=== PATIENT | female | born 1980 | race American Indian/Alaskan Native ===

== ENCOUNTER 2017-06-05 19:02 | Inpatient (IN) | payer MEDICAID ==
[2017-06-05] MEDS ORDERED: LACTATED RINGERS 1,000 ML IV SCH (23:45)
[2017-06-05] MEDS ORDERED: STADOL IV PRN (23:58)
[2017-06-06 00:49] LABS: Hematocrit 37.6 % (30.3-42.9); Hemoglobin 12.4 gm/dl (10.1-14.3); Mean Corpuscular HGB Conc 33 % (30-34); Mean Corpuscular Hemoglobin 28 pg (28-32); Mean Corpuscular Volume 85 fl (79-97); Red Blood Count 4.42 M/mm3 (3.65-5.03); Red Cell Distribution Width 16.3 % (13.2-15.2); White Blood Count 10.2 K/mm3 (4.5-11.0)
[2017-06-06 01:04] LABS: Platelet Count 97 K/mm3 (140-440)
[2017-06-06] MEDS ORDERED: SUBLIMAZE ONE (01:15)
[2017-06-06] MEDS ORDERED: XYLOCAINE 2% INFILTRATI ONE (01:17)
[2017-06-06] MEDS ORDERED: MINERAL OIL PO PRN (01:17)
[2017-06-06] MEDS ORDERED: BRETHINE IVP PRN (01:17)
[2017-06-06] MEDS ORDERED: STADOL IV PRN (01:17)
[2017-06-06] MEDS ORDERED: BRETHINE SUB-Q PRN (01:17)
[2017-06-06] MEDS ORDERED: NARCAN 0.4 MG/1 ML IV PRN (01:17)
[2017-06-06] MEDS ORDERED: SUBLIMAZE IV PRN (01:17)
[2017-06-06] MEDS ORDERED: ZOFRAN IV PRN (01:17)
[2017-06-06] MEDS ORDERED: ePHEDrine SULFATE IV PRN (01:17)
--- NOTE | 2017-06-06 01:26 | History and Physical Report ---
History of Present Illness Date of examination: 06/06/17 Date of admission: 06/05/17 19:02 Chief complaint: active labor, oligo, gdm History of present illness: 36 yo at 39 weeks in for IOL/active labor. Sent by [facility] for oligo. Upon admission patient was 3 cm dilated. Pt of Lif[facility] since 8 weeks of . Hx of thrombocytopenia in . Past History Past Medical History: other (thrombocytopenia) [employer] History: abnormal PAP smear, herpes, other (GDM) Family/Genetic History: cancer Social history: no significant social history. denies: smoking, alcohol abuse, prescription drug abuse, IV drug use - Obstetrical History Expected Date of Delivery: 06/13/17 Actual Gestation: 39 Week(s) 0 Day(s) : 5 Para: 3 Hx # Term Pregnancies: 3 Number of Pregnancies: 0 Spontaneous Abortions: 1 Induced : 0 Number of Living Children: 3 Medications and Allergies Allergies Allergy/AdvReac Type Severity Reaction Status Date / Time No Known Allergies Allergy Verified 10/13/13 20:45 Home Medications Medication Instructions Recorded Confirmed Last Taken Type Pnv with Ca,No.72/Iron/FA 10/13/13 10/13/13 10/13/13 History [ Plus Tablet] glyBURIDE [Glyburide] 2.5 mg PO 4XD 10/13/13 10/13/13 10/13/13 History glyBURIDE [Glyburide] 5 mg PO QPM 10/13/13 10/13/13 10/12/13 History Active Meds: Active Medications Butorphanol Tartrate (Stadol) 2 mg IV Q2H PRN PRN Reason: Labor Pain Last Admin: 06/06/17 00:31 Dose: 2 mg Lactated Ringer's (Lactated Ringers) 1,000 mls @ 125 mls/hr IV DIRECT SUNG Last Admin: 06/06/17 00:31 Dose: 125 mls/hr Review of Systems All systems: negative - Vital Signs Vital signs: Vital Signs Pulse BP 97 H 124/71 06/05/17 22:39 06/05/17 22:39 Temp Pulse Resp BP Pulse Ox 97 H 124/71 93 06/05/17 23:23 06/05/17 22:39 06/05/17 23:23 - Physical Exam Cardiovascular: Regular rate Lungs: Positive: Normal air movement Genitourinary (Female): Positive: normal external genitalia Vagina: Positive: normal moisture Extremities: Positive: normal Deep Tendon Reflex Grade: Normal +2 - Obstetrical FHR: category 1 FHR comments: 125 Uterine Contraction Monitor Mode: External Cervical Dilatation: 7 (AROM minimal amount of clear fluid) Cervical Effacement Percentage: 100 station: 0 Uterine Contraction Frequency (min): 4-5 Uterine Contraction Pattern: Regular Uterine Contraction Intensity: Moderate Results Result Diagrams: 06/06/17 00:05 Abnormal lab results 06/06/17 Range/Units 00:05 RDW 16.3 H (13.2-15.2) % Plt Count 97 L (140-440) K/mm3 All other labs normal. Assessment and Plan A: IUP 39 weeks Active labor Oligo GDM HSV2 Thrombocytopenia Category 2 FHT, minimal variability after stadol Uncomfortable with contractions GBS negative P: Admit to labor Pitocin induction/augmentation IV meds as desired
[2017-06-06] MEDS ORDERED: PITOCin/NS 30 UNIT/500ML 30 UNITS/500 ML BAG IV SCH (02:00)
[2017-06-06] MEDS ORDERED: PITOCin/NS 20 UNIT/1000ML DRIP 20 UNITS/1,000 ML BAG IV SCH (02:00)
--- NOTE | 2017-06-06 02:49 | Procedure Note ---
OB Delivery Note - Delivery Date of Delivery: 06/06/17 (0226) Surgeon: FREDY SHETH Estimated blood loss: 200cc - Vaginal Delivery position: OA Intrapartum events: none Delivery induction: none Delivery augmentation: rupture of membranes Delivery monitor: external FHT, external uterine Route of delivery: Delivery placenta: spontaneous Delivery cord: 3 umbilical vessels Episiotomy: none Delivery laceration: none Delivery comments: Francheska Cook was delivered on 06/06/2017 @ 0226 over an intact perineum. Cord was clamped and cut by FOB. Baby was taken to warmer for decreased tone. Placenta delivered Montero side presenting. Apgars 7/9. Weighed 7lb 6oz. 200ccEBL. Fundus firm, midline and 3 fingers below umbilicus. - Infant A at 1 minute: 7 at 5 minutes: 9 Gender: Female
[2017-06-06] MEDS ORDERED: MILK OF MAGNESIA PO PRN (02:50)
[2017-06-06] MEDS ORDERED: BENADRYL PO PRN (02:50)
[2017-06-06] MEDS ORDERED: LANSINOH TP PRN (02:50)
[2017-06-06] MEDS ORDERED: DULCOLAX PR PRN (02:50)
[2017-06-06] MEDS ORDERED: TUCKS PAD TP PRN (02:50)
[2017-06-06] MEDS ORDERED: NORCO 5/325 PO PRN (02:50)
[2017-06-06] MEDS ORDERED: TYLENOL PO PRN (02:50)
[2017-06-06] MEDS ORDERED: SODIUM CHLORIDE FLUSH SYRINGE 10 ML IV PRN (03:00)
[2017-06-06] MEDS: MOTRIN PO SCH ×2 (12:08→17:57)
[2017-06-06 15:04] LABS: Hematocrit 33.3 % (30.3-42.9); Hemoglobin 10.6 gm/dl (10.1-14.3)
[2017-06-07] MEDS: MOTRIN PO SCH ×3 (00:05→12:05)
[2017-06-07 09:02] VITALS: BP 146/73
--- NOTE | 2017-06-07 10:19 | Progress Note ---
Assessment and Plan A: PPD1 VSS P: Routine PP care DC today Subjective - Subjective Date of service: 06/07/17 Principal diagnosis: PPD 1 Interval history: 36 yo at 39 weeks in for IOL/active labor. Sent by [facility] for oligo. Upon admission patient was 3 cm dilated. Pt of Lifecycle since 8 weeks of . Hx of thrombocytopenia in . Delivered on 06/06 @ 0226. Patient reports: appetite normal, voiding normally, pain well controlled, ambulating normally [place]: doing well Objective - Vital Signs Latest vital signs: Vital Signs Temp Pulse Resp BP 06/07/17 09:01 98.4 F 100 H 18 146/73 06/07/17 00:05 18 06/07/17 00:00 98.2 F 83 20 136/52 06/06/17 20:05 98.2 F 87 20 133/74 06/06/17 16:50 98.2 F 72 20 138/79 06/06/17 12:57 98.2 F 94 H 20 121/67 Intake and Output 06/06/17 06/07/17 06/07/17 22:59 06:59 14:59 Intake Total 480 240 Output Total 1100 Balance -620 240 Intake: Oral 480 240 Output: Urine 1100 Void 1100 Other: Total, Intake Amount 240 240 Total, Output Amount 1100 # Voids Void 1 1 - Exam Cardiovascular: Present: Regular rate Lungs: Present: Normal air movement Vulva: both: normal (scant lochia) Uterus: Present: fundal height below umbilicus Extremities: Present: normal Deep Tendon Reflex Grade: Normal +2 - Allied health notes Allied health notes reviewed: nursing
--- NOTE | 2017-06-07 10:22 | Discharge Summary ---
Providers - Providers Date of Admission: 06/05/17 19:02 Date of discharge: 06/07/17 Attending physician: MARCIA HIGGINS MD Primary care physician: MARCIA HIGGINS MD Hospitalization Reason for admission: active labor Delivery: Episiotomy: none Laceration: none complications: none Discharge diagnosis: IUP at term delivered baby: female Hospital course: uneventful Condition at discharge: Good Disposition: DC-01 TO HOME OR SELFCARE Plan - Provider Discharge Summary Activity: routine, no sex for 6 weeks, no heavy lifting 4 weeks, no strenuous exercise Diet: routine Instructions: routine Additional instructions: [] Smoking cessation referral if applicable(refer to patient education folder for contact #) [] Refer to [facility] Booklet Call your doctor immediately for: * Fever > 100.5 * Heavy vaginal bleeding ( >1 pad per hour) * Severe persistent headache * Shortness of breath * Reddened, hot, painful area to leg or breast * Drainage or odor from incision. * Keep incision clean and dry at all times and follow doctor's instructions regarding bathing/showering - Follow up plan Follow up: [facility] [Provider Group] - 6 Weeks
== END 2017-06-07 20:00 | disposition home or self-care (01) | DRG 774 ==
LOC: LD 19:02 → OB 06-06 04:42
PROVIDERS: ADMIT Obstetrics & Gynecology; ATTEND Obstetrics & Gynecology
PROC: 10E0XZZ Delivery of Products of Conception, External Approach (ICD-10-PCS; principal; 2017-06-06)
DX: O41.03X0 Oligohydramnios, third trimester, not applicable or unspecified (principal); O98.52 Other viral diseases complicating childbirth; O99.12 Other diseases of the blood and blood-forming organs and certain disorders involving the immune mechanism complicating childbirth; O24.429 Gestational diabetes mellitus in childbirth, unspecified control; B00.9 Herpesviral infection, unspecified; D69.6 Thrombocytopenia, unspecified; Z3A.39 39 weeks gestation of pregnancy; Z37.0 Single live birth; O76 Abnormality in fetal heart rate and rhythm complicating labor and delivery
CPT/HCPCS: 36415; 82962; 85014; 85018; 85027; 86850; 86900; 86901; 99211; G0463; J0595; J2590; J3010; J7120

== ENCOUNTER 2020-11-17 11:16 | Day surgery (SDC) | payer MEDICAID ==
--- NOTE | 2020-11-11 10:19 | History and Physical Report ---
History of Present Illness Date of examination: 11/11/20 History of present illness: 39 yo with menorrhagia. Menses are heavy when they come but are normally timed. Hgn and plts are normal. Uterus normal on U/S. EMBx was WNL. H/O BTL. Past History Past Medical History: hypertension, other (anemia, thrombocytopenia in her history, Vit D and B12 defeciency, prediabetes, subclinical hyperthyroidism ) Past Surgical History: appendectomy, other (tubal ligation) - Obstetrical History : 5 Hx # Term Pregnancies: 4 Number of Living Children: 4 Medications and Allergies Allergies Allergy/AdvReac Type Severity Reaction Status Date / Time No Known Allergies Allergy Verified 11/10/20 17:40 Home Medications Medication Instructions Recorded Confirmed Last Taken Type Cyanocobalamin [Vitamin B-12] 1,000 mcg PO DAILY 11/10/20 11/17/20 11/16/20 09:00 History Ergocalciferol(Vitamin D2)(Nf) 400 unit PO QWEEK 11/10/20 11/17/20 11/11/20 09:00 History [Vitamin D (Nf)] Ferrous Sulfate [Iron 325 MG] 325 mg PO DAILY 11/10/20 11/17/20 11/15/20 09:00 History Progesterone, Micronized 100 mg PO DAILY 11/10/20 11/17/20 11/16/20 19:00 History [Progesterone] Review of Systems All systems: negative (except HPI) - Vital Signs Vital signs: see EMR charting - Physical Exam Cardiovascular: Regular rate, No murmurs Lungs: Positive: Clear to auscultation, Normal air movement Results All other labs normal. Assessment and Plan - Patient Problems (1) Menorrhagia Current Visit: No Status: Acute Plan to address problem: PT counseled and opts for D&C, Novasure and hysteroscopy on 11/17. Patient fully consented for the surgery. Risks, benefits, and alternatives were all discussed with the patient including risk of bleeding, infection, and potential for injury. Patient understands and accepts these risks. Patient agrees to proceed with surgery. All questions were answered. H&P is up-to-date.
[~2020-11-17 11:16] MED LIST: LACTATED RINGERS 1,000 ML IV SCH; MIDAZOLAM 2 MG/2 ML INJ IV NR
[2020-11-17] MEDS ORDERED: ONDANSETRON 4 MG/2 ML INJ IV PRN (12:04)
[2020-11-17] MEDS ORDERED: fentaNYL 100 MCG/2 ML INJ IV PRN (12:04)
--- NOTE | 2020-11-17 12:04 | Anesthesia Day of Surgery ---
Anesthesia Day of Surgery - Day of Surgery Patient Examined: Yes Patient H&P Reviewed: Yes Patient is NPO: Yes
--- NOTE | 2020-11-17 12:04 | Anesthesia Consultation ---
Anesthesia Consult and Med Hx Date of service: 11/17/20 - Airway Anesthetic Teeth Evaluation: Good, Partials ROM Head & Neck: Adequate Mental/Hyoid Distance: Adequate Mallampati Class: Class II Intubation Access Assessment: Probably Good - Pulmonary Exam CTA: Yes - Cardiac Exam Cardiac Exam: RRR - Pre-Operative Health Status ASA Pre-Surgery Classification: ASA2 Proposed Anesthetic Plan: General - Pulmonary Hx Smoking: No Hx Respiratory Symptoms: No - Cardiovascular System Hx Hypertension: No - Central Nervous System CVA: No - Gastrointestinal Hx Gastroesophageal Reflux Disease: No - Endocrine Hx Renal Disease: No Hx Liver Disease: No Hx Insulin Dependent Diabetes: No Hx Non-Insulin Dependent Diabetes: No (borderline DM, no meds) Hx Thyroid Disease: Yes (recent dx, patient unsure if hypo or hyper. No meds.) - Hematic Hx Anemia: Yes (Fe supplements) - Other Systems Hx Obesity: No - Additional Comments Anesthesia Medical History Comments: No hx anesthetic complications.
[2020-11-17] MEDS ORDERED: LIDOCAINE MPF (2%) 20 MG/1 ML VIAL 5 ML ONE (12:36)
[2020-11-17] MEDS ORDERED: fentaNYL 100 MCG/2 ML INJ ONE (12:36)
[2020-11-17] MEDS ORDERED: propofoL 200 MG/20 ML VIAL IV ONE (12:37)
[2020-11-17] MEDS ORDERED: SILVER NITRATE APPLICATOR 1 EA TP ONE (12:44)
[2020-11-17] MEDS ORDERED: SODIUM CHLORIDE 0.9% 1000 ML IV SOLN IR ONE (13:51)
--- NOTE | 2020-11-17 14:22 | Post Operative Note ---
Date of procedure: 11/17/20 Pre-op diagnosis: Menorrhagia Post-op diagnosis: same Findings: Uterus was anteverted and sounded to 9 cm. The cavity length was 4 cm and the cavity width was 4.8 cm. The endometrium had no significant polyps, masses or lesions. Both ostia were visualized. Patient did have some thickened shaggy endometrium. Procedure: Indication: 39-year-old -0-1-4 with menorrhagia. Patient with a history of a tubal ligation. Patient is here for D&C, hysteroscopy, NovaSure endometrial ablation Procedure: Patient was taken to the operating room and prepped and draped in the usual fashion. Bimanual exam was done. Findings noted above. Single tooth tenaculum was applied to the anterior lip of the cervix. Uterus was sounded and then adequately dilated for the placement of the hysteroscope which was done without difficulty. Hysteroscopic findings noted above. Measurement for the NovaSure device was done. Hysteroscope then removed and sharp endometrial curettage was performed until a good cry was noted throughout. NovaSure device was then placed at this point. The cavity test was performed. It passed and the ablation was performed to its completion without difficulty. NovaSure device and single-tooth tenaculum were removed. Good hemostasis noted throughout. Procedure concluded at this point. Patient tolerated the procedure well. All instrument and lap counts were correct. Patient taken to the recovery in stable condition. Anesthesia: GETA Surgeon: SHERIDAN GARCIA Estimated blood loss: minimal Pathology: list (Endometrial curettings) Specimen disposition: to lab Condition: stable Disposition: PACU
--- NOTE | 2020-11-17 14:23 | Short Stay Summary ---
Short Stay Documentation Date of service: 11/17/20 Narrative H&P: Patient was seen on 11/17/2020 for a D&C, hysteroscopy, NovaSure endometrial ablation. Procedure was successful and uncomplicated. Please see H&P and operative report for details. Patient sent home in stable condition and advised to follow-up in the office in 1 month - Allergies and Medications Current Medications: Allergies No Known Allergies Allergy (Verified 11/10/20 17:40) Home Medications Medication Instructions Recorded Confirmed Last Taken Type Cyanocobalamin [Vitamin B-12] 1,000 mcg PO DAILY 11/10/20 11/17/20 11/16/20 09:00 History Ergocalciferol(Vitamin D2)(Nf) 400 unit PO QWEEK 11/10/20 11/17/20 11/11/20 09:00 History [Vitamin D (Nf)] Ferrous Sulfate [Iron 325 MG] 325 mg PO DAILY 11/10/20 11/17/20 11/15/20 09:00 History Progesterone, Micronized 100 mg PO DAILY 11/10/20 11/17/20 11/16/20 19:00 History [Progesterone] Ibuprofen [Motrin 600 MG tab] 600 mg PO Q8H PRN #20 tablet 11/17/20 Unknown Rx Active Medications Fentanyl (Fentanyl 100 Mcg/2 Ml Inj) 50 mcg IV Q5MIN PRN PRN Reason: Pain , Severe (7-10) Lactated Ringer's (Lactated Ringers) 1,000 mls @ 100 mls/hr IV DIRECT SUNG Stop: 11/17/20 23:59 Last Admin: 11/17/20 12:15 Dose: 100 mls/hr Documented by: Midazolam HCl (Midazolam 2 Mg/2 Ml Inj) 2 mg IV PREOP NR Stop: 11/17/20 21:00 Last Admin: 11/17/20 13:10 Dose: 2 mg Documented by: Ondansetron HCl (Ondansetron 4 Mg/2 Ml Inj) 4 mg IV ONCE PRN PRN Reason: Nausea And Vomiting - Disposition Condition at discharge: Stable Disposition: - TO HOME OR SELFCARE - Discharge Diagnoses (1) Menorrhagia Status: Acute Short Stay Discharge Plan Follow up with: PRIMARY CARE, [Primary Care Provider] - 12/20/20 Prescriptions: Ibuprofen [Motrin 600 MG tab] 600 mg PO Q8H PRN #20 tablet PRN Reason: Pain
[2020-11-17 14:46] VITALS: BP 148/87
--- NOTE | 2020-11-17 15:27 | Post Anesthesia Evaluation ---
- Post Anesthesia Evaluation Patient Participated: Yes Airway Patent: Yes Stable Respiratory Function: Yes Nausea/Vomiting: No Temp > 96.8F: Yes Pain Manageable: Yes Adequeate Hydration: Yes Anesthesia Complications: No
== END 2020-11-17 15:15 | disposition home or self-care (01) ==
LOC: OR 11:16
PROVIDERS: ATTEND Obstetrics & Gynecology
DX: N92.0 Excessive and frequent menstruation with regular cycle (principal); N84.0 Polyp of corpus uteri; N85.8 Other specified noninflammatory disorders of uterus; D69.6 Thrombocytopenia, unspecified; E11.9 Type 2 diabetes mellitus without complications; Z79.899 Other long term (current) drug therapy; Z90.49 Acquired absence of other specified parts of digestive tract; Z98.51 Tubal ligation status; Z98.890 Other specified postprocedural states; Z83.3 Family history of diabetes mellitus; Z82.49 Family history of ischemic heart disease and other diseases of the circulatory system
CPT/HCPCS: 58563; 81025; 88305; J2250; J2704; J3010; J7030; J7120